=== PATIENT | female | born 1990 | race Two or more races ===

== ENCOUNTER 2017-06-13 21:40 | Emergency (ER) | payer OTHER ==
[~2017-06-13] VITALS: Ht 149.9 cm; Wt 70.3 kg
--- NOTE | 2017-06-13 21:52 | NUR ---
CALLED NO ANSWER
[2017-06-13 22:01] VITALS: BP 135/79
== END 2017-06-13 23:21 | disposition home or self-care (01) ==
LOC: ER 21:44
DX: H66.92 Otitis media, unspecified, left ear (principal); H61.22 Impacted cerumen, left ear
CPT/HCPCS: 69209; 99283; A4606; Z7610

== ENCOUNTER 2025-04-30 20:35 | Emergency (ER) | payer BC, OTHER ==
[~2025-04-30] VITALS: Ht 149.9 cm; Wt 72.6 kg
[2025-04-30] MEDS: IV NS 0.9% 1,000 ML BAG IV ONE (21:30)
[2025-04-30 21:39] LABS: PLATELET COUNT (AUTO) 342 K/uL (150-450); RED BLOOD CELL COUNT(AUTO) 4.92 MIL/uL (4.0-5.2); RED CELL DISTRIBUTION WIDTH 14.1 % (11.5-15.0); WHITE BLOOD COUNT (AUTO) 10.0 K/uL (4.3-11.0)
[2025-04-30 21:47] LABS: CALCIUM, SERUM 9.0 mg/dL (8.5-10.1); CREATININE 0.8 mg/dL (0.6-1.3); SODIUM SERUM 139.0 mmol/L (136-145); UREA NITROGEN, BLOOD 15.0 mg/dL (7-18)
[2025-04-30] MEDS ORDERED: KETOROLAC TROMETHAMINE 15 MG/ML VIAL ONE (21:47)
[2025-04-30] MEDS: KETOROLAC TROMETHAMINE 15 MG/ML VIAL IV ONE (21:51)
[2025-04-30 21:55] LABS: ASPARTATE AMINOTRANSFERASE 17.0 U/L (15-37); TOTAL PROTEIN, SERUM 7.7 g/dL (6.4-8.2)
[2025-04-30] MEDS: BACLOFEN (10 MG) 10 MG TABLET PO ONE (22:30)
[2025-04-30] MEDS: LIDOCAINE 5% (PATCH) 1 EA PATCH TP SCH (22:30)
[2025-04-30 22:48] LABS: APPEARANCE,URINE CLEAR (CLEAR); BLOOD, URINE NEGATIVE Ery/uL (NEGATIVE); LEUKOCYTE ESTERASE ,URINE TRACE (NEGATIVE); NITRITE, URINE NEGATIVE (NEGATIVE); UGLUCOSE NEGATIVE (NEGATIVE)
[2025-04-30 22:50] LABS: PREGNANCY TEST URINE QUAL NEGATIVE (NEGATIVE)
[2025-04-30 23:04] LABS: ADD URINE CULTURE YES
[2025-04-30] MEDS ORDERED: LIDO30AD10 TP (23:28)
[2025-04-30] MEDS ORDERED: BACL10TA PO (23:28)
[2025-04-30] MEDS ORDERED: KETO10TA2 PO (23:28)
[2025-05-01 00:50] VITALS: BP 121/75; TEMP 98; O2SAT 97
== END 2025-05-01 00:51 | disposition home or self-care (01) ==
LOC: ER 20:39
DX: S39.012A Strain of muscle, fascia and tendon of lower back, initial encounter (principal); R10.20 Pelvic and perineal pain unspecified side; X58.XXXA Exposure to other specified factors, initial encounter; Y93.89 Activity, other specified; Y92.89 Other specified places as the place of occurrence of the external cause; Y99.8 Other external cause status; Z79.899 Other long term (current) drug therapy
CPT/HCPCS: 99284; 96374; 96361; 96375; 85025; 80048; 87086; 80076; 84703; 81001; 36415; 84702; J1885; J2919; J7030